=== PATIENT | female | born 1985 | race Caucasian/White ===

== ENCOUNTER 2017-01-04 01:25 | Inpatient (IN) | payer MEDICAID ==
[~2017-01-04] VITALS: Ht 134.6 cm; Wt 59.0 kg
[~2017-01-04 01:25] MED LIST: CALCIUM CARBON600 M4 PO; IRON65 M2 PO; PRENATAL VITAMI1 T10 PO
[2017-01-04 01:33] VITALS: BP 111/83
--- NOTE | 2017-01-04 01:44 | NUR ---
31Y F PRESENT TO ER C/O OF ABD PAIN X4 DAYS. PAIN 10/10 IN SCALE. NO DISTRESS NOTED.
--- NOTE | 2017-01-04 01:46 | NUR ---
Dr. Galeano evaluating patient at bedside.
--- NOTE | 2017-01-04 01:47 | NUR ---
Josse robert in [facility] - 01/04/17 at 0423 by ANNABELLA PT TAKEN TO BED 3
[2017-01-04] MEDS ORDERED: FAMOTIDINE 20 MG TAB PO ONE (01:50)
[2017-01-04] MEDS ORDERED: KETOROLAC 60 MG/2 ML VIAL IM ONE (01:50)
[2017-01-04] MEDS ORDERED: ONDANSETRON 4 MG ODT PO ONE (01:50)
--- NOTE | 2017-01-04 03:03 | NUR ---
Ultrasound at bedside.
[2017-01-04] MEDS ORDERED: LORazepam 2 MG/ML VIAL IVP PRN (03:25)
[2017-01-04] MEDS ORDERED: ONDANSETRON 4 MG/2 ML VIAL IVP PRN (03:25)
[2017-01-04] MEDS ORDERED: MORPHINE SULFATE 4 MG/ML SYR IVP PRN (03:25)
[2017-01-04] MEDS ORDERED: LORazepam 2 MG/ML VIAL IM/IVP PRN (03:30)
[2017-01-04] MEDS ORDERED: cefTRIAXone 1,000 MG VIAL ONE (03:38)
--- NOTE | 2017-01-04 04:09 | NUR ---
Patient will be admitted to care of DR PEREA . Admited to TELEMETRY. Will go to room 119B. Belongings list completed. Report to ERICKA VELÁZQUEZ.
[2017-01-04] MEDS: NACL 0.9% 1,000 ML IV SCH ×4 (04:37→23:24)
[2017-01-04 04:45] VITALS: BP 100/70
--- NOTE | 2017-01-04 04:45 | NUR ---
RECEIVED PT FROM ER VIA ANGELIKA PT [id number] IV ON RT AC PATENT ON DOUGH SHEETER SR PT IS ;ORIENTED TO THE FLOOR CALL CORINAT WITHIN REACH DENIES ANY PAIN ON ADMISSION
[2017-01-04] MEDS: AMPICILLIN/SULBACTAM 3 GM in NACL 0.9% 100 ML IV SCH ×3 (05:29→17:21)
[2017-01-04] MEDS ORDERED: AMPICILLIN/SULBACTAM 3 GM VIAL ONE (05:30)
--- NOTE | 2017-01-04 06:53 | NUR ---
PT RESTING ON BED ON TELEMETRY SR IV ON RT AC INFUSING WELL
--- NOTE | 2017-01-04 07:15 | NUR ---
REPORT RECEIVED FROM ERICKA VELÁZQUEZ AT BEDSIDE. PT LYING IN BED AND VOICED NO C/O PAIN/ DISCOMFORT. PT'S VISITING AT BEDSIDE.
--- NOTE | 2017-01-04 07:35 | NUR ---
PT AAOX4, PLEASANT AND VOICED NO C/O PAIN/ DISCOMFORT. SHIFT ASSESSMENT DONE AND CHARTED. PLAN OF CARE, MEDS, TREATMENTS AND SAFETY DISCUSSED WITH PT AND PT VERBALIZED UNDERSTANDING. WILL CONTINUE TO MONITOR PT.
[2017-01-04 08:00] VITALS: BP 98/59
--- NOTE | 2017-01-04 08:03 | NUR ---
DR. MOTLEY PHONED AND GAVE NEW ORDERS.
[2017-01-04] MEDS ORDERED: FERROUS SULFATE 325 MG TABEC PO SCH (09:00)
--- NOTE | 2017-01-04 09:04 | NUR ---
PATIENT HAS BEEN SCREENED AND CATEGORIZED MODERATE NUTRITION RISK. PATIENT WILL BE SEEN WITHIN 3-5 DAYS OF ADMISSION. 01/06/17-01/08/[address]
[2017-01-04] MEDS: CALCIUM CARB 600 MG TAB PO SCH (09:56)
[2017-01-04] MEDS: MULTIVIT/MIN/CA/FE/FA 1 TAB PO SCH (09:56)
--- NOTE | 2017-01-04 10:00 | NUR ---
PT LYING IN BED COMFORTABLY. PT VOICED NO C/O ABDOMINAL PAIN. PT TOOK PO MEDS WELL SCHEDULED.
[2017-01-04] MEDS ORDERED: ACETAMINOPHEN 325 MG TAB PO PRN (11:30)
--- NOTE | 2017-01-04 11:43 | NUR ---
TELEMETRY DISCONTINUED. TELE BOX REMOVED AND RETURNED TO YARN TEXTURE MACHINE OPERATOR.
[2017-01-04 12:04] VITALS: BP 95/64
--- NOTE | 2017-01-04 13:54 | NUR ---
PT AMBULATING IN HER ROOM WITH STEADY GAIT. NO C/O PAIN VOICED AT THIS TIME.
--- NOTE | 2017-01-04 14:06 | NUR ---
PT TO NUCLEAR MED PER W/C FOR HIDA SCAN.
[2017-01-04 15:49] VITALS: BP 107/77
[2017-01-04] MEDS: MORPHINE SULFATE 2 MG/ML SYR IVP PRN (15:49)
[2017-01-04 16:30] VITALS: BP 106/78
--- NOTE | 2017-01-04 16:30 | NUR ---
PT RETURNED FROM NUCLEAR MED PER W/C IN A STABLE CONDITION. NO C/O PAIN VOICED BY PT AT THIS TIME.
[2017-01-04] MEDS: KETOROLAC 30 MG/ML VIAL IVP PRN (18:46)
--- NOTE | 2017-01-04 18:50 | NUR ---
PT MEDICATED WITH TORADOL PER PRN ORDER FOR C/O ABDOMINAL PAIN 03/19. BP 97/65. PT NPO EXCEPT MEDS.
--- NOTE | 2017-01-04 19:30 | NUR ---
REPORT GIVEN TO INCOMING ACCOUNTING TEACHER LIVAN. PT LYING COMFORTABLY AND BED AND PT STATED THAT HER PAIN WAS RELIEVED.
--- NOTE | 2017-01-04 19:31 | NUR ---
RECD. RESTING IN BED, AWAKE, A/OX4. RESPIRATION EVEN AND UNLABORED. IV OF NS AT 100 ML/HR INFUSING RIGHT AC G20. ON BILATERAL LEG SEQUENTIALS. PLAN OF CARE FOR THE SHIFT DISCUSSED. VERBALIZED UNDERSTANDING. DENIES PAIN 0/10.
--- NOTE | 2017-01-04 20:00 | NUR ---
Patient's Plan of Care was discussed and reviewed with AUTOMOTIVE BUYER: LIVAN SHERMAN
--- NOTE | 2017-01-04 21:40 | NUR ---
DR. MOTLEY CAME AND EXAMINED PATIENT. WANTS TO KNOW RESULT OF HIDA SCAN, FOLLOW UP WITH RADIOLOGY. WILL FAX RESULT.
--- NOTE | 2017-01-04 22:15 | NUR ---
INFORMED DR. MOTLEY RESULT OF HIDA SCAN. FINDINGS COULD BE CONSISTENT WITH ACUTE OR CHRONIC CHOLECYSTITIS. NO ORDER MADE.
[2017-01-05] VITALS (8 sets, daily range): BP systolic 93–117; BP diastolic 64–77
--- NOTE | 2017-01-05 | NUR ---
RESTING COMFORTABLY IN BED, DENIES PAIN 0/10,
[2017-01-05] MEDS: AMPICILLIN/SULBACTAM 3 GM in NACL 0.9% 100 ML IV SCH ×4 (00:57→18:34)
[2017-01-05] MEDS: MORPHINE SULFATE 2 MG/ML SYR IVP PRN ×3 (04:42→20:30)
--- NOTE | 2017-01-05 07:00 | NUR ---
RESTING IN BED, RESPIRATION EVEN AND UNLABORED. CONDITION REMAIN STABLE. WILL ENDORSE TO AM NURSE FOR CONTINUITY OF CARE.
--- NOTE | 2017-01-05 07:20 | NUR ---
ENDORSED TO Thuy BLACK FOR CONTINUITY OF CARE.
--- NOTE | 2017-01-05 07:21 | NUR ---
RECEIVED REPORT FROM PRIVATE DUTY AIDE NURSE AT BEDSIDE. PT IS ALERT AWAKE AND ORIENTED. INTRODUCED OURSELVES AND UPDATED THE BOARD. PT STATED SHE HAS ABDOMINAL PAIN 04/19, WILL MEDICATE WITH MORNING MEDS. NOTED R AC 20G IV. SKIN INTACT. CALL LIGHT WITHIN REACH. WILL CONTINUE TO MONITOR.
[2017-01-05] MEDS: CALCIUM CARB 600 MG TAB PO SCH (08:43)
[2017-01-05] MEDS: MULTIVIT/MIN/CA/FE/FA 1 TAB PO SCH (08:43)
[2017-01-05] MEDS: ASCORBIC ACID 500 MG TAB PO SCH (08:43)
[2017-01-05] MEDS: NACL 0.9% 1,000 ML IV SCH ×2 (08:44→19:24)
[2017-01-05] MEDS: FERROUS SULFATE 325 MG TABEC PO SCH (08:44)
--- NOTE | 2017-01-05 08:45 | NUR ---
ADMINISTERED MORNING MEDS. PT IS NPO EXCEPT MEDS. PT TOLERATED WELL. WILL CONTINUE TO MONITOR PT.
--- NOTE | 2017-01-05 11:00 | NUR ---
PT RESTING COMFORTABLY. NO SIGNS OF DISTRESS. NO COMPLAINTS OF PAIN. WILL CONTINUE TO MONITOR PT.
--- NOTE | 2017-01-05 13:50 | NUR ---
DR. MOTLEY'S ORDER FOR SURGERY IS CANCELLED, INSTEAD DR. HENSON WILL PERFORM LAP JOHN TODAY AT 3PM. DR. HENSON HAS NOT SEEN PT AT BEDSIDE. WILL HOLD OFF ON CONSENT AND SEND IT ALONG WITH PT TO THE OR. HAVE OR NURSES GET CONSENT FROM PT. WILL START ON PRE-OP CHECK LIST. Addendum: 01/05/17 at 1427 by Sharon Jackson RN URINE CUP GIVEN TO PT TO GIVE SAMPLE.
--- NOTE | 2017-01-05 14:23 | NUR ---
PT AWARE THAT SHE IS HAVING SURGERY TODAY AT 3PM WITH DR. MARTINEZ, INSTEAD OF TOMORROW WITH DR. MOTLEY PREVIOUSLY SCHEDULED. PT STATED THAT HER IS ON HIS WAY.
--- NOTE | 2017-01-05 14:35 | NUR ---
DR. BOLAND HERE TO TALK TO PT. PT SIGNED CONSENT FORM. SPOKE TO SURGERY ABOUT PT EATING CLEAR LIQ DIET FOR LUNCH. ATE AROUND 12PM. GOT OK FROM ANESTHESIOLGIST TO CONTINUE WITH SCHEDULED SURGERY.
--- NOTE | 2017-01-05 14:45 | NUR ---
3 OR NURSES ARE HERE TO TAKE PT FOR HER PROCEDURE. SHERRY'Ede IV.
[2017-01-05] MEDS ORDERED: PHENYLEPHRINE 10 MG/ML VIAL ONE (14:58)
[2017-01-05] MEDS ORDERED: DEXAMETHASONE 4 MG/ML VIAL ONE (14:58)
[2017-01-05] MEDS ORDERED: ONDANSETRON 4 MG/2 ML VIAL ONE (14:58)
[2017-01-05] MEDS ORDERED: SUCCINYLCHOLINE CHLORIDE 200 MG/10 ML VIAL IVP ONE (14:58)
[2017-01-05] MEDS ORDERED: GLYCOPYRROLATE 0.2 MG/ML VIAL ONE (14:58)
[2017-01-05] MEDS ORDERED: PROPOFOL 200 MG/20 ML VIAL IV ONE (14:58)
[2017-01-05] MEDS ORDERED: KETOROLAC 30 MG/ML VIAL ONE (14:58)
[2017-01-05] MEDS ORDERED: ROCURONIUM 50 MG/5 ML VIAL IV ONE (14:58)
[2017-01-05] MEDS ORDERED: LIDOCAINE 2% 100 MG/5 ML SYR IVP ONE (14:58)
[2017-01-05] MEDS ORDERED: DESFLURANE 240 ML BTL INH ONE (14:58)
[2017-01-05] MEDS ORDERED: MIDAZOLAM 2 MG/2 ML VIAL ONE (15:08)
[2017-01-05] MEDS ORDERED: fentaNYL 0.05 MG/ML VIAL ONE (15:09)
[2017-01-05] MEDS ORDERED: ceFAZolin 1,000 MG VIAL ONE (15:11)
[2017-01-05] MEDS: BUPIVACAINE-MPF/EPI 0.5% 30 ML VIAL INJ ONE ×2 (15:16→16:43)
[2017-01-05] MEDS ORDERED: ONDANSETRON 4 MG/2 ML VIAL IVP PRN (15:35)
[2017-01-05] MEDS ORDERED: HYDROmorphone 1 MG/ML AMP IVP PRN (15:35)
[2017-01-05] MEDS ORDERED: THROMBIN KIT 20 MU VIAL TP ONE (16:03)
--- NOTE | 2017-01-05 17:15 | NUR ---
PT CAME BACK ON UNIT AFTER LAP JOHN. PT VERY SLEEPY. PER OR NURSE, PT DID WELL. V/S WNL. SPOUSE AT BEDSIDE. WILL CONTINUE CHECKING HER V/S PER POST OP PROTOCOL.
--- NOTE | 2017-01-05 18:35 | NUR ---
PT AMBULATED TO THE BATHROOM. CHANGED ONE OF THE DRESSING ON ABDOMEN D/T BEING SOILED. PT TOLERATED WELL. NO COMPLAINTS OF PAIN. FAMILY AT BEDSIDE. WILL CONTINUE TO MONITOR PT.
--- NOTE | 2017-01-05 19:10 | NUR ---
ENDORSED PATIENT TO POSTING CLERK NURSE AT BEDSIDE FOR CONTINUITY OF CARE. PATIENT IN STABLE CONDITION.
--- NOTE | 2017-01-05 19:20 | NUR ---
PT. RECEIVED FROM AM RN WITH VISITORS AROUND. AWAKE AND ALERT. NO SOB. DENIES PAIN AT THIS TIME. ABLE TO VERBAL;IZE NEEDS WELL . PT. CALL LIGHT WITH IN REACH AND ENCOURAGED TO CALL FOR ANY HELP SHE MAY NEED OR IF IN PAIN.S/P LAP CHOLECYSTECTOMY THIS P.M. 4 BANDAGES NOTED INTACT AND NO BLEEDING. PT. AMBULATED JUST NOW TO RESTROOM TO URINATE. ACCOMPANIED BY FAMILY MEMBER.
--- NOTE | 2017-01-05 20:00 | NUR ---
PT. AMBULATED TO RESTROOM TO URINATE AND ASSISTED BY CASTING CLEANER. ROM X 4.
--- NOTE | 2017-01-05 20:34 | NUR ---
MEDICATED WITH MORPHINE RT SURGICAL SITE PAINFUL. S/P LAP CHOLECYSTECTOMY THIS P.M. ABLE TO VERBALIZE NEEDS WELL IN [place]. DRESSING INTACT AND NO BLEEDING.
--- NOTE | 2017-01-05 22:06 | NUR ---
PT. SLEEPING. NO RESTLESSNESS NOTED AT THIS TIME. CALL LIGHT WITH IN REACH.
--- NOTE | 2017-01-06 | NUR ---
SLEEPING WELL. NO RESTLESSNESS NOTED. NO SOB.
[2017-01-06] MEDS: AMPICILLIN/SULBACTAM 3 GM in NACL 0.9% 100 ML IV SCH ×4 (00:18→18:37)
[2017-01-06] MEDS: NACL 0.9% 1,000 ML IV SCH (00:19)
--- NOTE | 2017-01-06 02:15 | NUR ---
CHECKED ON PT. AWAKE AND ASSISTED TO RESTROOM TO URINATE. ABLE TO USE CALL LIGHT FOR HELP.
[2017-01-06] MEDS ORDERED: SIMETHICONE 80 MG TAB.CHEW PO PRN (03:50)
--- NOTE | 2017-01-06 04:30 | NUR ---
SLEEPING. NO RESTLESSNESS.
[2017-01-06 06:23] VITALS: BP 126/77
[2017-01-06] MEDS: MORPHINE SULFATE 2 MG/ML SYR IVP PRN (06:23)
--- NOTE | 2017-01-06 06:30 | NUR ---
AMBULATING WELL AT THIS TIEM. WITH STANDBY ASSIST.
--- NOTE | 2017-01-06 07:29 | NUR ---
PT. AMBULATED THE HALLWAY WITH STANDBY ASSIST OF AUDIO VISUAL COLLECTIONS COORDINATOR. MEDICATED WITH MORPHINE 2 MG IVP REQUESTED AFTER THE WALK. ENDORSED TO THE NEXT RN FOR CONTINUITY OF CARE.
--- NOTE | 2017-01-06 07:29 | NUR ---
RECEIVED REPORT FROM NIGHT NURSE. PT IS AAOX 4 FRISIAN SPEAKING. PT ON ROOM AIR. IV TO RIGHT AC 22G INFUSING WELL, S/P LAP JOHN WITH 4 ABD DRESSINGS DRY AND INTACT . INITIAL ASSESSMENT COMPLETED, REVIEWED PLAN OF CARE WITH PT, PT VERBALIZED UNDERSTANDING. ALL NEEDS METS. CALL LIGHT WITHIN REACH. WILL CONTINUE TO MONITOR.
[2017-01-06 08:00] VITALS: BP 100/63
[2017-01-06] MEDS: FERROUS SULFATE 325 MG TABEC PO SCH (08:56)
[2017-01-06] MEDS: CALCIUM CARB 600 MG TAB PO SCH (08:57)
[2017-01-06] MEDS: ASCORBIC ACID 500 MG TAB PO SCH (08:57)
[2017-01-06] MEDS: MULTIVIT/MIN/CA/FE/FA 1 TAB PO SCH (08:57)
--- NOTE | 2017-01-06 08:58 | NUR ---
DUE MEDICATIONS GIVEN, PT TOLERATED WELL. PT CURRENTLY RESTING IN BED. ALL NEEDS MET. CALL LIGHT WITHIN REACH. WILL CONTINUE TO MONITOR.
[2017-01-06] MEDS ORDERED: POTASSIUM CHLORIDE 40 MEQ, LIDOCAINE 1% 25 MG in NACL 0.9% 250 ML IV SCH (10:30)
[2017-01-06] MEDS: HYDROcodone/APAP 5/325 MG 1 TAB TAB PO PRN ×2 (11:23→18:37)
--- NOTE | 2017-01-06 12:30 | NUR ---
PT CURRENTLY WALKING AROUND UNIT. NO S/S OF DISTRESS NOTED. WILL CONTINUE TO MONITOR.
[2017-01-06] MEDS ORDERED: MAG SULF 2000 MG/WATER PREMIX 50 ML IV SCH (13:30)
[2017-01-06 16:00] VITALS: BP 96/61
[2017-01-06] MEDS ORDERED: POTASSIUM CHLORIDE 10 MEQ TABER PO SCH (16:00)
--- NOTE | 2017-01-06 16:05 | NUR ---
PT CURRENTLY WALKING AROUND UNIT.
--- NOTE | 2017-01-06 16:35 | NUR ---
DUE MEDICATIONS GIVEN PT GIVEN, PT CURRENTLY RESTING IN BED ALL NEEDS MET. CALL LIGHT WITHIN RAECH. WILL CONTINUE TO MONITOR,
--- NOTE | 2017-01-06 17:35 | NUR ---
PT CURRENTLY VISITING WITH FRIENDS. ALL NEEDS MET. CALL LIGHT WITHIN REACH. WILL CONTINUE TO MONITOR.
--- NOTE | 2017-01-06 18:40 | NUR ---
DUE MEDICATIONS GIVEN. PT CURRENTLY C/O ABD PAIN 02/17 MEDICATED PER MD ORDERS.
--- NOTE | 2017-01-06 19:13 | NUR ---
ENDORSED PLAN OF CARE TO NIGHT NURSE PT IN STABLE CONDITION.
--- NOTE | 2017-01-06 19:15 | NUR ---
RECEIVED PT FROM JERAD RN PT ESTONIAN SPEAKER AAOX4 AMBULATORY S/P QING LOPEZ DENIES ANY PAIN AT THIS TIME IV ON RT AC INFUSING WELL INITIAL ASSESSMENT DONE
--- NOTE | 2017-01-06 21:30 | NUR ---
PT AMBULATES TO THE RESTROOM NOT DISTRESS NOTED IV ON RT AC INFUSING WELL
[2017-01-07] VITALS: BP 96/59
--- NOTE | 2017-01-07 01:00 | NUR ---
PT SLEEPING WELL NOT SIGNS OF PAIN NOTED
--- NOTE | 2017-01-07 04:00 | NUR ---
PT SLEEPING WELL NOT DISTRESS NOTED IV ON RT AC INFUSING WELL
[2017-01-07] MEDS: NACL 0.9% 1,000 ML IV SCH (05:24)
[2017-01-07] MEDS: AMPICILLIN/SULBACTAM 3 GM in NACL 0.9% 100 ML IV SCH ×3 (05:28→12:15)
[2017-01-07] MEDS: KETOROLAC 30 MG/ML VIAL IVP PRN (06:43)
--- NOTE | 2017-01-07 06:49 | NUR ---
PAIN MEDIC GIVEN ORDER WILL BE MONITORING , MAMBULATORY VOIDING WELL ABD DRESSING DRY AND INTACT
--- NOTE | 2017-01-07 07:10 | NUR ---
RECEIVED PT REPORT AT BEDSIDE BY NIGHT NURSE. PT IS AAOX4 AND SHOWS NO S/S OF DISTRESS. PT DENIES PAIN. PT IS ON ROOM AIR. IV NOTED ON THE R AC PATENT AND INTACT. BED IS LOWERED WITH CALL LIGHT WITHIN REACH. WILL CONTINUE TO MONITOR.
[2017-01-07 08:00] VITALS: BP 107/64
[2017-01-07] MEDS: ASCORBIC ACID 500 MG TAB PO SCH (09:26)
[2017-01-07] MEDS: MULTIVIT/MIN/CA/FE/FA 1 TAB PO SCH (09:26)
[2017-01-07] MEDS: FERROUS SULFATE 325 MG TABEC PO SCH (09:26)
[2017-01-07] MEDS: CALCIUM CARB 600 MG TAB PO SCH (09:26)
--- NOTE | 2017-01-07 09:30 | NUR ---
NOTED PT DRESSINGS ON ABD. ALL FOUR ARE CLEAN AND INTACT.
--- NOTE | 2017-01-07 09:30 | NUR ---
ADMINISTERED SCHEDULED MEDICATIONS. PT TOLERATED WELL. PT SHOWS NO S/S OF DISTRESS. PT RESTING IN BED WITH CALL LIGHT WITHIN REACH.
--- NOTE | 2017-01-07 11:30 | NUR ---
PT IN BED RESTING. PT SHOWS NO S/S OF DISTRESS. BED LOWERED WITH CALL LIGHT WITHIN REACH.
[2017-01-07] MEDS ORDERED: GOOD SENSE OMEP20 MG PO (13:12)
[2017-01-07] MEDS ORDERED: IBUPROFEN800 M1 PO (13:14)
[2017-01-07] MEDS ORDERED: ZOFRAN ODT4 MG SL (13:14)
--- NOTE | 2017-01-07 13:30 | NUR ---
ABD INCISIONS DRESSINGS TAKEN OUT. INCISIONS CLEAN DRY AND INTACT. PICTURES TAKE AND FILED INTO CHART.
--- NOTE | 2017-01-07 14:00 | NUR ---
PT HAS BEEN DISCHARGED. ALL PAPERWORK SIGNED. ALL QUESTIONS ANSWERED. ALL BELONGINGS AND PRESCRIPTIONS IN PT POSSESSION. IV DISCONTINUED WITH CANNULA INTACT. WRISTBANDS REMOVED. PT AMB OFF UNIT WITH FAMILY MEMBER AT SIDE. PT IN STABLE CONDITION.
== END 2017-01-07 14:00 | disposition home or self-care (01) | DRG 263 ==
LOC: MED 01:25 → MTU 03:27
PROVIDERS: ADMIT Family Medicine; ATTEND Family Medicine
PROC: 0FT44ZZ Resection of Gallbladder, Percutaneous Endoscopic Approach (ICD-10-PCS; principal; 2017-01-05 15:00)
DX: K80.01 Calculus of gallbladder with acute cholecystitis with obstruction (principal); N17.0 Acute kidney failure with tubular necrosis; N39.0 Urinary tract infection, site not specified; K21.9 Gastro-esophageal reflux disease without esophagitis; E66.9 Obesity, unspecified; E87.6 Hypokalemia; E83.42 Hypomagnesemia; Z68.32 Body mass index [BMI] 32.0-32.9, adult; Z56.0 Unemployment, unspecified

== ENCOUNTER 2021-09-05 15:13 | Emergency (ER) | payer MEDICAID ==
[~2021-09-05] VITALS: Ht 144.8 cm; Wt 67.6 kg
[~2021-09-05 15:13] MED LIST changes: +CALC600T56 PO; -CALCIUM CARBON600 M4 PO; +FERR-212 PO; +IBUP-2218 PO; -IRON65 M2 PO; +OMEP-278 PO; +ONDA-188 SL; -PRENATAL VITAMI1 T10 PO
[2021-09-05 15:21] VITALS: BP 112/72
[2021-09-05] MEDS ORDERED: CYCLOBENZAPRINE 10 MG TAB PO ONE (15:25)
[2021-09-05] MEDS ORDERED: KETOROLAC 30 MG/ML VIAL IM ONE (15:25)
[2021-09-05] MEDS ORDERED: NAPR-54 PO (16:22)
[2021-09-05] MEDS ORDERED: CYCL-711 PO (16:22)
[2021-09-05] MEDS ORDERED: KETOROLAC 30 MG/ML VIAL ONE (16:55)
[2021-09-05] MEDS ORDERED: CYCLOBENZAPRINE 10 MG TAB ONE (16:55)
--- NOTE | 2021-09-05 17:05 | NUR ---
36 Y/O FEMALE C/O R SHOULDER PAIN X5 DAYS. DENIES INJURY/FALLS. PT RATES PAIN 10/10 THAT SHE DESCRIBES PULSING. PT STATES PAIN RADIATES TO NECK AND DOWN ARM. DENIES TAKING ANYTHING FOR PAIN. PT REPORTS NUMBNESS AND STATES THAT IT FEELS "STIFF". RADIAL PULSES +2 CAP REFLL <3 SECONDS. LIMITED ROM, BUT PT STATES PAIN INCREASES WITH MOVEMENT WHEN SHE MOVES HER ARM UP. PT A/O X4 WITH EVEN AND UNLABORED RESPIRATIONS PMH:DENIES NKDA
--- NOTE | 2021-09-05 17:23 | NUR ---
Patient discharged with v/s stable. Written and verbal after care instructions ABOUT SHOULDER PAIN given and explained. Patient alert, oriented and verbalized understanding of instructions. Ambulatory with steady gait. All questions addressed prior to discharge. ID band removed. Patient advised to follow up with PMD. Rx of FLEXERIL AND NAPROXEN given. Patient educated on indication of medication including possible reaction and side effects. Opportunity to ask questions provided and answered.
== END 2021-09-05 17:23 | disposition home or self-care (01) ==
LOC: MED 15:13
DX: M25.511 Pain in right shoulder (principal); Z90.49 Acquired absence of other specified parts of digestive tract; Z79.899 Other long term (current) drug therapy
CPT/HCPCS: 73030; 96372; 99283; J1885

== ENCOUNTER 2024-05-14 15:10 | Emergency (ER) | payer MEDICAID, OTHER ==
[~2024-05-14] VITALS: Ht 149.9 cm; Wt 72.3 kg
[~2024-05-14 15:10] MED LIST changes: +CYCL-711 PO; +NAPR-337 PO
[2024-05-14 15:17] VITALS: BP 114/76; PULSE 94; RESP 19; TEMP 98.2; O2SAT 97
[2024-05-14] MEDS: CYCLOBENZAPRINE 10 MG TAB PO ONE (16:10)
[2024-05-14] MEDS ORDERED: CYCL-711 PO (16:42)
--- NOTE | 2024-05-14 16:50 | NUR ---
Patient discharged with v/s stable. Written and verbal after care instructions given and explained. Patient verbalized understanding. Ambulatory with steady gait. All questions addressed prior to discharge. Advised to follow up with PMD.
== END 2024-05-14 16:50 | disposition home or self-care (01) ==
LOC: MED 15:10
DX: S46.911A Strain of unspecified muscle, fascia and tendon at shoulder and upper arm level, right arm, initial encounter (principal); S16.1XXA Strain of muscle, fascia and tendon at neck level, initial encounter; Z90.49 Acquired absence of other specified parts of digestive tract; Z79.899 Other long term (current) drug therapy; X58.XXXA Exposure to other specified factors, initial encounter; Y92.89 Other specified places as the place of occurrence of the external cause; Y93.89 Activity, other specified; Y99.8 Other external cause status
CPT/HCPCS: 73030; 81025; 99283